=== PATIENT | female | born 1980 | race Caucasian/White ===

== ENCOUNTER → 2016-09-10 | Outpatient (CLI) | payer BC ==
--- NOTE | 2016-09-10 17:22 | KCIC ---
PROCEDURE MRI of the brain without contrast 09/10/2016 HISTORY Left-sided facial droop which varies in severity for several years. TECHNIQUE Unenhanced T1 weighted sagittal and axial, T2 weighted axial and coronal and FLAIR, gradient echo and diffusion weighted axial images of the brain were obtained. FINDINGS The ventricles and sulci are within normal limits in size and configuration. No area of significant abnormal signal intensity is seen involving the brain parenchyma. No extra-axial fluid collection is seen. There is no MRI evidence of acute ischemia/infarction. Mild mucosal thickening is seen involving ethmoid air cells bilaterally. Very mild mucosal thickening is seen involving the maxillary sinuses bilaterally. Normal flow voids are seen within the major vascular structures surrounding the brain parenchyma. IMPRESSION 1. Negative MRI of the brain. 2. Mild paranasal sinus disease. Electronically signed by: Edin Castillo MD (Sep 10, 2016 17:20:57)
== END | disposition home or self-care (01) ==
LOC: KCIC MRI 16:08
PROVIDERS: ATTEND Nurse Practitioner Family
DX: R29.810 Facial weakness (principal); J01.80 Other acute sinusitis
CPT/HCPCS: 70551